=== PATIENT | male | born 1960 | race Asian ===

== ENCOUNTER 2022-10-04 10:28 | Emergency (ER) | payer OTHER ==
[~2022-10-04] VITALS: Ht 170.2 cm; Wt 72.3 kg
[2022-10-04 10:42] VITALS: TEMP 98.1
[2022-10-04 14:20] VITALS: BP 186/92; PULSE 118; RESP 18
== END 2022-10-04 14:28 | disposition home or self-care (01) ==
LOC: EMS 10:39
DX: T18.2XXA Foreign body in stomach, initial encounter (principal); W45.8XXA Other foreign body or object entering through skin, initial encounter; Y93.89 Activity, other specified; Y92.89 Other specified places as the place of occurrence of the external cause; Y99.8 Other external cause status
CPT/HCPCS: 74019; 99283